=== PATIENT | male | born 1990 | race Caucasian/White ===

== ENCOUNTER 2016-11-29 23:21 | Emergency (ER) | payer BC ==
[2016-11-29] MEDS ORDERED: IBUPROFEN 600 MG TABLET (FP) PO ONE (23:38)
[2016-11-29] MEDS ORDERED: METHOCARBAMOL 500 MG TABLET PO ONE (23:38)
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
[2016-11-29 23:40] VITALS: BP 138/96; PULSE 72; TEMP 98.7; BMI 27.4
== END 2016-11-29 23:51 | disposition home or self-care (01) ==
LOC: FER 23:21
DX: S13.4XXA Sprain of ligaments of cervical spine, initial encounter (principal); V43.02XA Car driver injured in collision with other type car in nontraffic accident, initial encounter; Y93.89 Activity, other specified; Y92.410 Unspecified street and highway as the place of occurrence of the external cause; S39.012A Strain of muscle, fascia and tendon of lower back, initial encounter
CPT/HCPCS: 99281-25